=== PATIENT | female | born 1950 | race Caucasian/White ===

== ENCOUNTER 2021-08-20 09:57 | Outpatient (CLI) | payer MEDICARE | END 2021-08-20 09:58 | disposition home or self-care (01) | LOC: BICRAD 09:57 | PROVIDERS: ATTEND Nurse Practitioner Family | DX: M25.552 Pain in left hip (principal) ==

== ENCOUNTER 2021-12-12 10:20 | Outpatient (CLI) | payer MEDICARE, MEDICAID | END 2021-12-12 10:21 | disposition home or self-care (01) | LOC: BICMAMMO 10:20 | PROVIDERS: ATTEND Family Medicine | DX: Z12.31 Encounter for screening mammogram for malignant neoplasm of breast (principal); Z13.820 Encounter for screening for osteoporosis; M85.852 Other specified disorders of bone density and structure, left thigh | CPT/HCPCS: 77063; 77067; 77080 ==

== ENCOUNTER 2022-12-23 15:36 | Outpatient (CLI) | payer MEDICARE, MEDICAID | END 2022-12-23 15:37 | disposition home or self-care (01) | LOC: ULT 15:36 | PROVIDERS: ATTEND Family Medicine | DX: R09.89 Other specified symptoms and signs involving the circulatory and respiratory systems (principal) | CPT/HCPCS: 93880 ==

== ENCOUNTER 2023-03-16 12:04 | Emergency (ER) | payer MEDICARE, MEDICAID ==
[2023-03-16] MEDS ORDERED: Ketorolac Tromethamine 30 MG/ML VIAL ONE (13:39)
== END 2023-03-16 14:18 | disposition home or self-care (01) ==
LOC: ERS 12:04
DX: S86.912A Strain of unspecified muscle(s) and tendon(s) at lower leg level, left leg, initial encounter (principal); E11.9 Type 2 diabetes mellitus without complications; I10 Essential (primary) hypertension; X50.1XXA Overexertion from prolonged static or awkward postures, initial encounter
CPT/HCPCS: 96372; J1885

== ENCOUNTER 2024-01-18 12:19 | Outpatient (CLI) | payer MEDICARE | END 2024-01-18 12:20 | disposition home or self-care (01) | LOC: BICMAMMO 12:19 | PROVIDERS: ATTEND Family Medicine | DX: Z12.31 Encounter for screening mammogram for malignant neoplasm of breast (principal) | CPT/HCPCS: 77063; 77067 ==

== ENCOUNTER 2024-05-02 10:11 | Inpatient (IN) | payer MEDICAID, MEDICARE ==
[2024-05-02] MEDS ORDERED: Ketorolac Tromethamine 30 MG (1 mL) VIAL ONE (12:17)
[2024-05-02] MEDS ORDERED: Acetaminophen 500 MG TAB ONE (12:17)
[2024-05-02] MEDS ORDERED: Losartan 25 MG TAB ONE (12:17)
[2024-05-02 14:38] LABS: Bacteria/HPF 2+ HPF (None Seen); Bilirubin Negative (Negative); Blood, Urine Trace (Negative); CAUTI Indications for Culture Dysuria,urgency,freq; Clarity Turbid (Clear); Glucose, Urine (Dipstick) Greater than 1000 mg/dL (Negative); Ketone, Urine Trace mg/dL (Negative); Leukocyte 500 Leu/uL (Negative); Nitrite Negative (Negative); Protein, Urine (Dipstick) 30 mg/dL (Neg-Trace); RBC/HPF None Seen HPF (0-3); Specific Gravity, Urine 1.023 (1.002-1.036); Squamous Epithelial 0-3 HPF (0-3); Urobilinogen Normal mg/dL (Less than 2); WBC/HPF 21-50 HPF (0-3); pH, Urine 7.5 (5.0-9.0)
[2024-05-02 14:40] LABS: Urine Culture Reflex Yes Yes
[2024-05-02] MEDS ORDERED: cefTRIAXone (ROCEPHIN) 2 GM VIAL ONE (15:00)
[2024-05-02] MEDS ORDERED: Morphine 4 MG/ML VIAL ONE ×2 (15:00→20:52)
[2024-05-02] MEDS ORDERED: Sodium Chloride 0.9% 100 ML ONE (15:00)
[2024-05-02 15:15] LABS: #Basophils 0.06 10x3/uL (0.0-0.2); %Basophils 0.5 % (0.0-1.0); %Eosinophils 1.5 % (0.0-10.0); %Lymphocytes 28.6 % (21.0-51.0); %Monocytes 8.2 % (0.0-10.0); %Neutrophils 60.5 % (42.0-75.0); Hematocrit 40.2 % (36.0-47.0); Hemoglobin 13.2 g/dL (12.0-16.0); Mean Corpuscular HGB CONC 32.8 g/dL (32.0-36.0); Mean Corpuscular Hemoglobin 26.6 pg (27.0-31.0); Mean Corpuscular Volume 80.9 fL (78.0-98.0); Mean Platelet Volume 9.9 fL (7.4-10.4); Platelet Count 428 10x3/uL (130-400); RBC Distribution Width 16.1 % (11.5-14.5); Red Blood Cell (RBC) Count 4.97 mill/uL (4.20-5.40)
[2024-05-02 16:13] LABS: ALT (SGPT) 24 U/L (8-55); AST (SGOT) 37 U/L (5-34); Albumin 3.7 g/dL (3.4-4.8); Alkaline Phosphatase 73 U/L (40-110); Anion Gap 18 mmol/L (10-20); BUN (Urea Nitrogen) 23 mg/dL (9.8-20.1); Bilirubin, Total 0.5 mg/dL (0.2-1.2); Calc. Creatinine Clearance 0 mL/min (70-130); Calcium 9.3 mg/dL (7.8-10.44); Carbon Dioxide 20 mmol/L (23-31); Chloride 106 mmol/L (98-107); Estimated GFR 71; Glucose 109 mg/dL (83-110); Lipase 51 U/L (8-78); Magnesium 2.1 mg/dL (1.6-2.6); Potassium 4.1 mmol/L (3.5-5.1); Protein, Total 7.7 g/dL (5.8-8.1); Sodium 140 mmol/L (136-145)
[2024-05-02] MEDS ORDERED: Aspirin Chewable 81 MG TAB ONE (17:20)
[2024-05-02] MEDS ORDERED: Glucagon 1 MG/ML KIT IM PRN (18:33)
[2024-05-02] MEDS ORDERED: Dextrose 50% Abboject 50 ML SYRINGE SLOW IVP PRN (18:33)
[2024-05-02] MEDS ORDERED: Acetaminophen 325 MG TAB PO PRN (18:33)
[2024-05-02] MEDS ORDERED: Dextrose 5% in Water 1,000 ML IV PRN (18:33)
[2024-05-02] MEDS ORDERED: Acetaminophen 650 MG Suppository PR PRN (18:33)
[2024-05-02] MEDS ORDERED: Ondansetron ODT 4 MG TAB PO PRN (18:33)
[2024-05-02] MEDS ORDERED: Nitroglycerin 0.4 MG TAB (25 Tab Bottle) SL PRN (18:33)
[2024-05-02 19:47] LABS: Troponin I 0.036 ng/mL (< 0.028)
[2024-05-02] MEDS ORDERED: hydrALAZINE 20 MG/ML VIAL SLOW IVP PRN (20:54)
[2024-05-02] MEDS: Morphine 4 MG/ML VIAL SLOW IVP PRN (21:00)
[2024-05-02] MEDS ORDERED: traMADol HCl 50 MG TAB ONE (22:21)
[2024-05-02] MEDS: traMADol HCl 50 MG TAB PO PRN (22:40)
[2024-05-03 00:13] LABS: Troponin I 0.025 ng/mL (< 0.028)
[2024-05-03] MEDS: Acetaminophen 500 MG TAB PO SCH ×2 (02:36→02:53)
[2024-05-03] MEDS: Ketorolac Tromethamine 30 MG (1 mL) VIAL IM SCH ×2 (02:36→02:54)
[2024-05-03] MEDS: Lidocaine 4% Patch TD SCH ×2 (02:37→06:18)
[2024-05-03] MEDS ORDERED: Cyclobenzaprine 10 MG TAB ONE (02:38)
[2024-05-03] MEDS ORDERED: Ketorolac Tromethamine 30 MG (1 mL) VIAL ONE ×2 (02:39→11:56)
[2024-05-03] MEDS ORDERED: Losartan 25 MG TAB ONE (02:40)
[2024-05-03] MEDS ORDERED: Acetaminophen 500 MG TAB ONE (02:43)
[2024-05-03] MEDS ORDERED: Famotidine 20 MG TAB ONE ×2 (02:44→10:09)
[2024-05-03] MEDS: Famotidine 20 MG TAB PO SCH (02:53)
[2024-05-03] MEDS: Losartan 25 MG TAB PO SCH ×3 (02:54→10:56)
[2024-05-03] MEDS: Transdermal Patch Removal TOP SCH ×2 (03:06→15:35)
[2024-05-03] MEDS: Cyclobenzaprine 10 MG TAB PO SCH (03:07)
[2024-05-03 04:41] VITALS: BMI 25.0
[2024-05-03 05:18] LABS: #Basophils 0.06 10x3/uL (0.0-0.2); %Basophils 0.6 % (0.0-1.0); %Eosinophils 2.3 % (0.0-10.0); %Lymphocytes 23.6 % (21.0-51.0); %Monocytes 9.3 % (0.0-10.0); %Neutrophils 63.5 % (42.0-75.0); Hematocrit 39.1 % (36.0-47.0); Hemoglobin 12.7 g/dL (12.0-16.0); Mean Corpuscular HGB CONC 32.5 g/dL (32.0-36.0); Mean Corpuscular Hemoglobin 26.3 pg (27.0-31.0); Mean Corpuscular Volume 81.1 fL (78.0-98.0); Mean Platelet Volume 9.7 fL (7.4-10.4); Platelet Count 363 10x3/uL (130-400); RBC Distribution Width 16.1 % (11.5-14.5); Red Blood Cell (RBC) Count 4.82 mill/uL (4.20-5.40)
[2024-05-03] MEDS ORDERED: Morphine 4 MG/ML VIAL ONE (05:22)
[2024-05-03 05:36] LABS: Hemoglobin A1c 7.5 % (4.0-6.0)
[2024-05-03 05:39] LABS: Anion Gap 15 mmol/L (10-20); BUN (Urea Nitrogen) 20 mg/dL (9.8-20.1); Calc. Creatinine Clearance 69 mL/min (70-130); Calcium 8.8 mg/dL (7.8-10.44); Carbon Dioxide 22 mmol/L (23-31); Cardiac Risk 7.1 (Less than 4.5); Chloride 104 mmol/L (98-107); Cholesterol 170 mg/dl (< 200 Desired); Estimated GFR 79; Glucose 124 mg/dL (83-110); HDL Cholesterol 24 mg/dL (>60 Neg Risk); LDL Cholesterol, Calculated 91 mg/dL; Potassium 2.9 mmol/L (3.5-5.1); Sodium 138 mmol/L (136-145); Triglycerides 275 mg/dL (Less than 150)
[2024-05-03] MEDS ORDERED: PAROXETINE HCL 10 MG PO SCH (09:00)
[2024-05-03] MEDS ORDERED: fentaNYL 50 mcg/mL 1 mL Vial ONE (10:08)
[2024-05-03] MEDS ORDERED: Aspirin Chewable 81 MG TAB ONE (10:09)
[2024-05-03] MEDS: fentaNYL 50 mcg/mL 1 mL Vial SLOW IVP SCH (10:15)
[2024-05-03] MEDS: Aspirin Chewable 81 MG TAB PO SCH (10:19)
[2024-05-03] MEDS: Rosuvastatin 10 MG TAB PO SCH (10:56)
[2024-05-03] MEDS: PARoxetine 20 MG TAB PO SCH (10:57)
[2024-05-03] MEDS: Baclofen 10 MG TAB PO SCH (10:58)
[2024-05-03] MEDS: Empagliflozin 10 MG TAB PO SCH (10:58)
[2024-05-03] MEDS: metFORMIN 500 MG TAB PO SCH (10:58)
[2024-05-03] MEDS ORDERED: Ondansetron PF 4 MG/2 ML Vial ONE (11:53)
[2024-05-03] MEDS: Ondansetron PF 4 MG/2 ML Vial IVP PRN (11:54)
[2024-05-03] MEDS: Ketorolac Tromethamine 30 MG (1 mL) VIAL IVP PRN (12:01)
[2024-05-03] MEDS: cefTRIAXone\\ROCEPHIN 1 GM in Sodium Chloride 0.9% 100 ML IVPB SCH (15:20)
[2024-05-03] MEDS: Gabapentin 300 MG CAP PO SCH (15:20)
[2024-05-03] MEDS: Dexamethasone 4 mg/ml Vial SLOW IVP SCH (15:23)
[2024-05-03] MEDS: fentaNYL 25 mcg Patch TD SCH (18:20)
[2024-05-03] MEDS: ALPRAZolam 0.5 MG TAB PO PRN (20:54)
[2024-05-04 04:39] LABS: #Basophils Less than 0.03 10x3/uL (0.0-0.2); #Eosinphils Less than 0.03 10x3/uL (0.0-0.7); %Basophils 0.2 % (0.0-1.0); %Lymphocytes 10.8 % (21.0-51.0); %Monocytes 1.6 % (0.0-10.0); %Neutrophils 86.1 % (42.0-75.0); Hematocrit 41.7 % (36.0-47.0); Hemoglobin 13.3 g/dL (12.0-16.0); Mean Corpuscular HGB CONC 31.9 g/dL (32.0-36.0); Mean Corpuscular Hemoglobin 25.8 pg (27.0-31.0); Mean Platelet Volume 10.2 fL (7.4-10.4); Platelet Count 394 10x3/uL (130-400); RBC Distribution Width 15.9 % (11.5-14.5); Red Blood Cell (RBC) Count 5.15 mill/uL (4.20-5.40)
[2024-05-04 04:59] LABS: Anion Gap 17 mmol/L (10-20); BUN (Urea Nitrogen) 23 mg/dL (9.8-20.1); Calc. Creatinine Clearance 65 mL/min (70-130); Calcium 9.5 mg/dL (7.8-10.44); Carbon Dioxide 19 mmol/L (23-31); Chloride 103 mmol/L (98-107); Estimated GFR 73; Glucose 178 mg/dL (83-110); Potassium 3.5 mmol/L (3.5-5.1); Sodium 135 mmol/L (136-145)
[2024-05-04] MEDS: Losartan 25 MG TAB PO SCH ×2 (12:53→13:29)
[2024-05-04] MEDS: Dexamethasone 4 mg/ml Vial SLOW IVP SCH (21:24)
[2024-05-05] MEDS ORDERED: Losartan 25 MG TAB PO SCH (09:00)
[2024-05-05] MEDS: cefTRIAXone\\ROCEPHIN 1 GM in Sodium Chloride 0.9% 100 ML IVPB SCH (09:27)
[2024-05-05] MEDS: Losartan 25 MG TAB PO SCH (09:27)
[2024-05-05] MEDS: Dexamethasone 4 mg/ml Vial SLOW IVP SCH (14:44)
[2024-05-05 15:55] VITALS: BP 163/74; TEMP 97.9
== END 2024-05-05 17:25 | disposition home or self-care (01) | DRG 552 ==
LOC: ERS 10:11 → 2NO 18:34 → ERHOLD 18:39 → 2NO 05-03 14:33
PROVIDERS: ADMIT Internal Medicine; ATTEND Internal Medicine
PROC: 5A09357 Assistance with Respiratory Ventilation, Less than 24 Consecutive Hours, Continuous Positive Airway Pressure (ICD-10-PCS; principal; 2024-05-03)
DX: M48.061 Spinal stenosis, lumbar region without neurogenic claudication (principal); N39.0 Urinary tract infection, site not specified; I5A Non-ischemic myocardial injury (non-traumatic); M54.42 Lumbago with sciatica, left side; E78.5 Hyperlipidemia, unspecified; E11.9 Type 2 diabetes mellitus without complications; R79.89 Other specified abnormal findings of blood chemistry; G47.33 Obstructive sleep apnea (adult) (pediatric); M51.36 Other intervertebral disc degeneration, lumbar region; M47.816 Spondylosis without myelopathy or radiculopathy, lumbar region; B96.20 Unspecified Escherichia coli [E. coli] as the cause of diseases classified elsewhere; R31.29 Other microscopic hematuria; I16.0 Hypertensive urgency; E11.40 Type 2 diabetes mellitus with diabetic neuropathy, unspecified; Z88.2 Allergy status to sulfonamides; Z88.5 Allergy status to narcotic agent; Z98.41 Cataract extraction status, right eye; Z98.42 Cataract extraction status, left eye; Z90.49 Acquired absence of other specified parts of digestive tract; Z98.891 History of uterine scar from previous surgery; Z98.890 Other specified postprocedural states
CPT/HCPCS: 36415; 36416; 72131; 72148; 80048; 80053; 80061; 81001; 83036; 83605; 83690; 83735; 84443; 84484; 85025; 87077; 87086; 87186; 93005; 96372; 96374; 96375; J0696; J1100; J1885; J2270; J2405; J3010; J3490